=== PATIENT | male | born 1935 | race Caucasian/White ===

== ENCOUNTER 2017-05-31 03:03 | Observation (INO) | payer MEDICARE ==
[2017-05-31] MEDS ORDERED: ASPIRIN 81 MG PO STA (03:17)
[2017-05-31] MEDS ORDERED: NITROGLYCERIN SL TABS 0.4 MG TAB SUBLINGUAL PRN (03:17)
[2017-05-31] MEDS ORDERED: SODIUM CHLORIDE 0.9% 1,000 ML IV STA (03:17)
[2017-05-31] MEDS ORDERED: MORPHINE SULFATE 4 MG/ML SYRINGE IV PRN (03:17)
[2017-05-31] MEDS ORDERED: NITROGLYCERIN SL TABS 0.4 MG TAB SUBLINGUAL STA (03:17)
--- NOTE | 2017-05-31 03:19 | ED ---
General Adult HPI - General Chief complaint: Chest Pain Stated complaint: CHEST PAIN Time Seen by Provider: 05/31/17 03:17 Source: patient, RN notes reviewed, old records reviewed Mode of arrival: wheelchair Limitations: no limitations - History of Present Illness Initial comments: This is an 81-year-old male the ER for chest pain. Patient has a similar episode chest pain or 4 days ago. Patient's complaining chest pain can be severe with shortness of breath. Patient has history of high blood pressure, high cholesterol. Patient did have bouts of chest pain with worsening episodes of chest pain like it severe with shortness of breath. No travel history no sick contacts. Patient did have a cardiac workup about a year ago which had for what he understands a normal stress test. - Related Data Home Medications Medication Instructions Recorded Confirmed Atenolol [Tenormin] 25 mg PO DAILY 08/01/15 05/31/17 Simvastatin [Zocor] 20 mg PO DAILY 08/01/15 05/31/17 Aspirin 81 mg PO DAILY 05/31/17 05/31/17 Allergies Allergy/AdvReac Type Severity Reaction Status Date / Time No Known Allergies Allergy Verified 08/01/15 11:57 Review of Systems ROS Statement: Those systems with pertinent positive or pertinent negative responses have been documented in the HPI. ROS Other: All systems not noted in ROS Statement are negative. Past Medical History Past Medical History: Hyperlipidemia, Hypertension History of Any Multi-Drug Resistant Organisms: None Reported Past Surgical History: No Surgical Hx Reported, Tonsillectomy Past Psychological History: No Psychological Hx Reported Smoking Status: Never smoker Past Alcohol Use History: Rare Past Drug Use History: None Reported General Exam Limitations: no limitations General appearance: alert, in no apparent distress Head exam: Present: atraumatic, normocephalic, normal inspection Eye exam: Present: normal appearance, PERRL, EOMI. Absent: scleral icterus, conjunctival injection, periorbital swelling ENT exam: Present: normal exam, mucous membranes moist Neck exam: Present: normal inspection. Absent: tenderness, meningismus, lymphadenopathy Respiratory exam: Present: normal lung sounds bilaterally. Absent: respiratory distress, wheezes, rales, rhonchi, stridor Cardiovascular Exam: Present: regular rate, normal rhythm, normal heart sounds. Absent: systolic murmur, diastolic murmur, rubs, gallop, clicks GI/Abdominal exam: Present: soft, normal bowel sounds. Absent: distended, tenderness, guarding, rebound, rigid Extremities exam: Present: normal inspection, full ROM, normal capillary refill. Absent: tenderness, pedal edema, joint swelling, calf tenderness Back exam: Present: normal inspection Neurological exam: Present: alert, oriented X3, CN II-XII intact Psychiatric exam: Present: normal affect, normal mood Skin exam: Present: warm, dry, intact, normal color. Absent: rash Course Vital Signs 05/31/17 05/31/17 05/31/17 03:09 03:44 04:13 Temperature 97.6 F Pulse Rate 71 67 Respiratory 18 18 Rate Blood Pressure 116/67 160/80 O2 Sat by Pulse 97 99 Oximetry 05/31/17 05/31/17 05/31/17 04:24 05:02 06:00 Temperature 97.5 F L Pulse Rate 66 57 L 83 Respiratory 18 16 18 Rate Blood Pressure 150/77 157/74 147/70 O2 Sat by Pulse 95 98 97 Oximetry EKG Findings - EKG Comments: EKG Findings:: EKG shows normal sinus rhythm rate of 71, SC 170, QRS 90, QTC 423 Medical Decision Making - Medical Decision Making 81 male to the ER for evaluation of, chest pain history of high cholesterol history of high blood pressure. Facial be admitted for chest pain observation - Lab Data Result diagrams: 05/31/17 03:20 05/31/17 03:20 - Radiology Data Radiology results: report reviewed (Chest x-ray is negative for acute disease), image reviewed Critical Care Time Critical Care Time: Yes Total Critical Care Time: 31 Disposition Clinical Impression: Chest pain Disposition: ADMITTED IP TO THIS [facility] Condition: Undetermined
[2017-05-31 03:40] LABS: Basophils % (A) 0 %; CH 31.5; CHCM 34.7; Eosinophils # (A) 0.1 k/uL (0-0.7); Eosinophils % (A) 1 %; HCT 41.5 % (39.0-53.0); HDW 2.65; HGB 13.8 gm/dL (13.0-17.5); Luc # (Auto) 0.14; Luc % (Auto) 2; Lymphocytes # (A) 1.2 k/uL (1.0-4.8); Lymphocytes % (A) 16 %; MCH 30.2 pg (25.0-35.0); MCHC 33.2 g/dL (31.0-37.0); Mean Platelet Volume 6.8; Monocytes # (A) 0.6 k/uL (0-1.0); Monocytes % (A) 8 %; Neutrophils # (A) 5.2 k/uL (1.3-7.7); Neutrophils % (A) 72 %; RBC 4.56 m/uL (4.30-5.90); WBC 7.2 k/uL (3.8-10.6); WBC (Perox) 7.42
[2017-05-31 03:50] LABS: ALT 28 U/L (21-72); AST 24 U/L (17-59); Alkaline Phosphatase 81 U/L (38-126); Anion Gap 9 mmol/L; Blood Urea Nitrogen 31 mg/dL (9-20); Calcium 10.1 mg/dL (8.4-10.2); Carbon Dioxide 25 mmol/L (22-30); Chloride 107 mmol/L (98-107); Glucose 125 mg/dL (74-99); Magnesium 2.1 mg/dL (1.6-2.3); Non-African American GFR(MDRD) 52 (>60 ml/min/1.73 sqM); Potassium 4.3 mmol/L (3.5-5.1); Sodium 141 mmol/L (137-145); Total Bilirubin 0.4 mg/dL (0.2-1.3); Total Protein 6.6 g/dL (6.3-8.2)
[2017-05-31 04:00] LABS: Creatine Kinase 87 U/L (55-170)
[2017-05-31 04:02] LABS: Prothrombin Time 10.6 sec (9.0-12.0)
[2017-05-31 04:14] LABS: Creatine Kinase MB 2.1 ng/mL (0.0-2.4); Troponin I <0.012 ng/mL (0.000-0.034)
[2017-05-31 04:38] LABS: Partial Thromboplastin Time 21.7 sec (22.0-30.0)
--- NOTE | 2017-05-31 04:41 | XR ---
EXAM: XR Chest, 2 Views CLINICAL HISTORY: Left-sided chest pain TECHNIQUE: Frontal and lateral views of the chest. COMPARISON: No relevant prior studies available. FINDINGS: Lungs: Unremarkable. No consolidation. Pleural space: Unremarkable. No pneumothorax. Heart: Unremarkable. No cardiomegaly. Mediastinum: Unremarkable. Bones/joints: Degenerative changes are seen throughout the osseous structures. IMPRESSION: No radiographic evidence of acute cardiopulmonary process.
[2017-05-31 10:14] LABS: Creatine Kinase 57 U/L (55-170)
[2017-05-31 10:25] LABS: Creatine Kinase MB 1.6 ng/mL (0.0-2.4); Troponin I <0.012 ng/mL (0.000-0.034)
--- NOTE | 2017-05-31 12:46 | P.CRDCN ---
History of Present Illness Consult date: 05/31/17 History of present illness: This is a 81-year-old male. Past medical history significant for essential hypertension and dyslipidemia. Patient presents with complaints of sharp left sided chest pain associated with inspiration and movement. He states he first felt this discomfort on Monday afternoon. He states that it is worse when he is moving his torso or lifting his arms. At rest he does not feel this discomfort. He denies radiation of this pain to his arm, neck or jaw. He does feel mild discomfort to the back with movement as well. He denies associated shortness of breath, nausea, diaphoresis, palpitations or dizziness. He is currently resting comfortably in no acute distress and is chest pain free. EKG done shows sinus mechanism with frequent PVC's which is consistent with previous. Troponins are normal x 2. Chest x-ray showed no acute cardiopulmonary process. Most recent echo dated from 2015 indicates preserved LV function with EF 55% done in the office. Review of Systems Extensive review of systems performed, negative except mentioned in HPI. Past Medical History Past Medical History: Hyperlipidemia, Hypertension, Osteoarthritis (OA) Additional Past Medical History / Comment(s): Arthritis L knee History of Any Multi-Drug Resistant Organisms: None Reported Past Surgical History: Orthopedic Surgery, Tonsillectomy Additional Past Surgical History / Comment(s): Colonoscopy, R hand middle trigger finger repair. Past Anesthesia/Blood Transfusion Reactions: No Reported Reaction, Motion Sickness Smoking Status: Never smoker - Past Family History Father Family Medical History: Myocardial Infarction ([place]) Additional Family Medical History / Comment(s): Pt did not have much contact with his father but know that he of a [place] in his late 60's. Mother Family Medical History: Diabetes Mellitus, Hearing Disorder / Deafness Additional Family Medical History / Comment(s): Pt states he believes his mother may have had some "mini strokes." Medications and Allergies Home Medications Medication Instructions Recorded Confirmed Type Aspirin 81 mg PO DAILY 05/31/17 05/31/17 History Atorvastatin [Lipitor] 20 mg PO DAILY 05/31/17 05/31/17 History Metoprolol Tartrate [Metoprolol 25 mg PO DAILY 05/31/17 05/31/17 History Tartrate] Allergies Allergy/AdvReac Type Severity Reaction Status Date / Time No Known Allergies Allergy Verified 05/31/17 07:23 Physical Exam Vitals: Vital Signs Temp Pulse Resp BP Pulse Ox 05/31/17 09:18 58 L 18 159/73 97 05/31/17 07:23 97.3 F L 57 L 18 173/98 98 05/31/17 06:00 83 18 147/70 97 05/31/17 05:02 97.5 F L 57 L 16 157/74 98 05/31/17 04:24 66 18 150/77 95 05/31/17 04:13 97.6 F 05/31/17 03:44 67 18 160/80 99 05/31/17 03:09 71 18 116/67 97 Intake and Output 05/30/17 05/31/17 05/31/17 22:59 06:59 14:59 Output Total 200 Balance -200 Output: Urine 200 Other: Weight 83.007 kg GENERAL: This is a 81-year-old that male in no apparent distress at the time of my examination. HEENT: Head is atraumatic, normocephalic. Pupils are equal, round. Sclerae anicteric. Conjunctivae are clear. Mucous membranes of the mouth are moist. Neck is supple. There is no jugular venous distention. No carotid bruit is heard. LUNGS: Clear to auscultation no wheezes, rales or rhonchi. No chest wall tenderness is noted on palpation or with deep breathing. HEART: Regular rate and rhythm with systolic ejection murmur at the base, no rubs or gallops. S1 and S2 heard. ABDOMEN: Soft, nontender. Bowel sounds are heard. No organomegaly noted. EXTREMITIES: 2+ peripheral pulses with no evidence of peripheral edema and no calf tenderness noted. NEUROLOGIC: Patient is awake, alert and oriented x3. Results 05/31/17 03:20 05/31/17 03:20 Cardiac Enzymes 05/31/17 05/31/17 05/31/17 Range/Units 03:20 03:20 09:25 AST 24 (17-59) U/L CK-MB (CK-2) 2.1 1.6 (0.0-2.4) ng/mL Troponin I <0.012 <0.012 (0.000-0.034) ng/mL Coagulation 05/31/17 Range/Units 03:20 PT 10.6 (9.0-12.0) sec APTT 21.7 L (22.0-30.0) sec CBC 05/31/17 Range/Units 03:20 WBC 7.2 (3.8-10.6) k/uL RBC 4.56 (4.30-5.90) m/uL Hgb 13.8 (13.0-17.5) gm/dL Hct 41.5 (39.0-53.0) % Plt Count 244 (150-450) k/uL Comprehensive Metabolic Panel 05/31/17 Range/Units 03:20 Sodium 141 (137-145) mmol/L Potassium 4.3 (3.5-5.1) mmol/L Chloride 107 (98-107) mmol/L Carbon Dioxide 25 (22-30) mmol/L BUN 31 H (9-20) mg/dL Creatinine 1.32 H (0.66-1.25) mg/dL Glucose 125 H (74-99) mg/dL Calcium 10.1 (8.4-10.2) mg/dL AST 24 (17-59) U/L ALT 28 (21-72) U/L Alkaline Phosphatase 81 (38-126) U/L Total Protein 6.6 (6.3-8.2) g/dL Albumin 4.0 (3.5-5.0) g/dL Current Medications Generic Name Dose Route Start Last Admin Trade Name Freq PRN Reason Stop Dose Admin Aspirin 325 mg 06/01/17 09:00 Aspirin PO DAILY DEBO Sodium Chloride 1,000 mls @ 100 mls/hr 05/31/17 03:17 05/31/17 03:42 Saline 0.9% IV 05/31/17 13:16 100 mls/hr .Q10H STA Administration Morphine Sulfate 4 mg 05/31/17 03:17 Morphine Sulfate (Inj) IV Q5M PRN Chest Pain Nitroglycerin 0.4 mg 05/31/17 03:17 Nitrostat SUBLINGUAL Q5M PRN Chest Pain Intake and Output 05/30/17 05/31/17 05/31/17 22:59 06:59 14:59 Output Total 200 Balance -200 Output: Urine 200 Other: Weight 83.007 kg 05/31/17 03:20 05/31/17 03:20 Assessment and Plan Plan: ASSESSMENT 1. Chest pain most likely musculoskeletal 2. Essential hypertension 3. History of frequent PVCs PLAN Hold presentation of this patient is strongly suggestive of musculoskeletal pain we will proceed with a stress echocardiogram to assess for any acute coronary event. If this is normal the patient is stable for discharge home to follow up with Dr. SARTHAK Simental. He states he artery has an appointment scheduled for earlier in June that is sufficient. Thank you kindly for this consultation. Nurse Practitioner note has been reviewed, I agree with a documented findings and plan of care. Patient was seen and examined.
[2017-05-31 13:36] VITALS: RESP 18
--- NOTE | 2017-05-31 15:32 | NM ---
EXAMINATION TYPE: NM pul vent and perfuse DATE OF EXAM: 05/31/2017 COMPARISON: Chest x-ray from earlier today HISTORY: Elevated d-dimer with chest pain. TECHNIQUE: Utilizing inhalation of 66.5 mCi Tc 99m DTPA aerosol and intravenous injection of 5.06 mC i of Tc 99m MAA, ventilation and perfusion images are acquired post injection in multiple projections . FINDINGS: Normal radiotracer distribution is noted in the lungs. There is no evidence of mismatched defects. IMPRESSION: No scintigraphic evidence for pulmonary embolism.
[2017-05-31 15:58] VITALS: BP 142/76; PULSE 78; TEMP 97.9
[2017-05-31 16:52] LABS: Creatine Kinase 52 U/L (55-170)
--- NOTE | 2017-05-31 16:54 | P.DS ---
Providers Date of admission: 05/31/17 03:17 Expected date of discharge: 05/31/17 Attending physician: Barbara Márquez DO Consults: 05/31/17 03:17 Consult Physician Urgent Consulting Provider: Tanya Mckenzie Consult Reason/Comments: cp Do you want consulting provider notified?: Yes Primary care physician: Pdero Murray - Discharge Diagnosis(es) (1) Chest pain Current Visit: Yes Status: Acute (2) Hypertension Current Visit: Yes Status: Acute (3) Hyperlipidemia Current Visit: Yes Status: Acute Hospital Course: This is a 81-year-old male that was presented to the ER with symptoms of chest pain. Patient describes the chest pain as being sharp in nature on the left side. Some breath no palpitations no fever. Also presents with headache. Patient denies any nausea with this. Patient had a workup here which showed mildly elevated d-dimer for which a VQ scan was done. And this was negative patient had stress test done by cardiology which is at this point is unofficial report and I am told is negative. Cardiology has notified nurse that patient can be discharged home at this time. Of note I was not notified of this patient's admission until 4:00 today Procedures: VQ scan showing low risk of PE Stress test which is presumptive negative as per cardiology Patient Condition at Discharge: Undetermined Plan - Discharge Summary New Discharge Prescriptions: Continue Aspirin 81 mg PO DAILY Metoprolol Tartrate 25 mg PO DAILY Atorvastatin [Lipitor] 20 mg PO DAILY Discharge Medication List Aspirin 81 mg PO DAILY 05/31/17 [History] Atorvastatin [Lipitor] 20 mg PO DAILY 05/31/17 [History] Metoprolol Tartrate 25 mg PO DAILY 05/31/17 [History] Follow up Appointment(s)/Referral(s): Pedro Murray MD [Primary Care Provider] - 1-2 days Patient Instructions/Handouts: Chest Pain (ED) Discharge Disposition: HOME SELF-CARE
--- NOTE | 2017-05-31 16:56 | P.HPIM ---
History of Present Illness H&P Date: 05/31/17 Chief Complaint: chest pain This is a 81-year-old male that comes in with symptoms of chest pain. Patient was seen yesterday at home with home symptoms started on the left side of the chest. Chest pain is described as sharp. No exacerbating factors. No shortness of breath or nausea he denies any previous cardiac history Review of Systems No fever no chills no cough no palpitations no lower extremity edema no nausea no abdominal pain Past Medical History Past Medical History: Hyperlipidemia, Hypertension, Osteoarthritis (OA) Additional Past Medical History / Comment(s): Arthritis L knee History of Any Multi-Drug Resistant Organisms: None Reported Past Surgical History: Orthopedic Surgery, Tonsillectomy Additional Past Surgical History / Comment(s): Colonoscopy, R hand middle trigger finger repair. Past Anesthesia/Blood Transfusion Reactions: No Reported Reaction, Motion Sickness Smoking Status: Never smoker - Past Family History Father Family Medical History: Myocardial Infarction ([place]) Additional Family Medical History / Comment(s): Pt did not have much contact with his father but know that he of a [place] in his late 60's. Mother Family Medical History: Diabetes Mellitus, Hearing Disorder / Deafness Additional Family Medical History / Comment(s): Pt states he believes his mother may have had some "mini strokes." Medications and Allergies Home Medications Medication Instructions Recorded Confirmed Type Aspirin 81 mg PO DAILY 05/31/17 05/31/17 History Atorvastatin [Lipitor] 20 mg PO DAILY 05/31/17 05/31/17 History Metoprolol Tartrate 25 mg PO DAILY 05/31/17 05/31/17 History Allergies Allergy/AdvReac Type Severity Reaction Status Date / Time No Known Allergies Allergy Verified 05/31/17 07:23 Physical Exam Vitals: Vital Signs Temp Pulse Pulse Resp BP BP Pulse Ox 05/31/17 16:00 78 18 05/31/17 15:56 97.9 F 78 18 142/76 95 05/31/17 13:46 74 18 05/31/17 13:34 97.7 F 74 18 94/61 100 05/31/17 12:26 97.4 F L 72 16 179/98 99 05/31/17 09:18 58 L 18 159/73 97 05/31/17 07:23 97.3 F L 57 L 18 173/98 98 05/31/17 06:00 83 18 147/70 97 05/31/17 05:02 97.5 F L 57 L 16 157/74 98 05/31/17 04:24 66 18 150/77 95 05/31/17 04:13 97.6 F 05/31/17 03:44 67 18 160/80 99 05/31/17 03:09 71 18 116/67 97 Intake and Output 05/31/17 05/31/17 05/31/17 06:59 14:59 22:59 Intake Total 240 Output Total 200 Balance -200 240 Intake: Oral 240 Output: Urine 200 Other: Voiding Method Toilet Toilet Weight 83.007 kg 76.2 kg Patient Weight 06/01/17 06:59 Weight 76.2 kg - EENT Eyes: PERRLA ENT: normal oropharynx - Respiratory Respiratory: bilateral: CTA - Cardiovascular Rhythm: regular Heart sounds: normal: S1, S2 - Gastrointestinal General gastrointestinal: soft (and deprssible) - Integumentary Integumentary: no rash - Neurologic Neurologic: CNII-XII intact - Musculoskeletal Musculoskeletal: strength equal bilaterally - Psychiatric Psychiatric: A&O x's 3, intact judgment & insight Results CBC & Chem 7: 05/31/17 03:20 05/31/17 03:20 Labs: Abnormal Lab Results - Last 24 Hours (Table) 05/31/17 05/31/17 05/31/17 Range/Units 03:20 03:20 12:26 APTT 21.7 L (22.0-30.0) sec D-Dimer 1.45 H (<0.60) mg/L FEU BUN 31 H (9-20) mg/dL Creatinine 1.32 H (0.66-1.25) mg/dL Glucose 125 H (74-99) mg/dL Thrombosis Risk Factor Assmnt - Choose All That Apply Any of the Below Risk Factors Present?: Yes Each Factor Represents 1 point: Obesity (BMI >25) Other Risk Factors: Yes Each Risk Factor Represents 3 Points: Age 75 years or older Other congenital or acquired thrombophilia - If yes, enter type in comment: No Thrombosis Risk Factor Assessment Total Risk Factor Score: 4 Thrombosis Risk Factor Assessment Level: Moderate Risk Assessment and Plan (1) Chest pain Narrative/Plan: Stress test is presumptively negative troponins have been negative is going to come to evaluate patient. VQ scan also negative Status: Acute (2) Hypertension Narrative/Plan: controlled continue current regimen Status: Acute (3) Hyperlipidemia Narrative/Plan: Continue Lipitor Status: Acute Plan: Patient was admitted with chest pains or cardiac enzymes were done which were negative. Patient also had VQ scan which was negative and had stress test which was negative. Cardiology has notified RN the patient is okay to be discharged Of note I was notified of this patient's discharge admission at 4:00 PM.
[2017-05-31 17:02] LABS: Creatine Kinase MB 1.4 ng/mL (0.0-2.4); Troponin I <0.012 ng/mL (0.000-0.034)
--- NOTE | 2017-05-31 17:04 | P.HPADDEND ---
H&P Addendum H&P Addendum Date: 05/31/17 Advanced directive note CODE STATUS discussed with patient and patient Y is POA
--- NOTE | 2017-06-01 05:50 | EST ---
EXERCISE STRESS DATE OF SERVICE: 05/31/2017 AGE: 81 SEX: Male HT: 69 WT: 183 PROTOCOL: Marcos STAGE: II DURATION OF EXERCISE: 4 minutes HEART RATE REST: 83 BLOOD PRESSURE REST: 157/87 MAXIMUM HEART RATE ACHIEVED: 134 MAXIMUM BLOOD PRESSURE: 181/56 85% MPHR: 118 100% MPHR: 139 METS: 5.8 INDICATIONS: Chest pain. CLINICAL INFORMATION: The patient admitted with chest discomfort and PVCs. Baseline heart rate 83 beats per minute. Baseline blood pressure 157/87 mmHg. Baseline 12-lead ECG shows sinus rhythm, with left-sided PVCs nonspecific ST-T abnormalities. Patient exercised on a Marcos protocol for 4 minutes achieving a peak heart rate of 134 beats per minute. Initially there was an increase in PVCs with exercise but at peak exercise, there was suppression of PVCs. Intermittent PVCs returned in recovery. There was no evidence for ischemia. No exercise-induced nonsustained ventricular tachycardia noted. IMPRESSION: Low average exercise capacity. PVCs suppressed at peak exercise. No nonsustained ventricular tachycardia. No evidence of ischemia. MMODL / IJN: [id number] /
[2017-06-01] MEDS ORDERED: ASPIRIN 325 MG TAB PO SCH (09:00)
== END 2017-05-31 18:03 | disposition home or self-care (01) ==
LOC: EC 03:03 → 3OBS 03:17
PROVIDERS: ADMIT Internal Medicine; ATTEND Internal Medicine
DX: R07.89 Other chest pain (principal); I10 Essential (primary) hypertension; E78.5 Hyperlipidemia, unspecified; I49.3 Ventricular premature depolarization; R06.02 Shortness of breath; R51 Headache; R79.89 Other specified abnormal findings of blood chemistry; M17.12 Unilateral primary osteoarthritis, left knee; Z68.25 Body mass index [BMI] 25.0-25.9, adult; E66.9 Obesity, unspecified; Z79.82 Long term (current) use of aspirin; Z79.899 Other long term (current) drug therapy; Z82.49 Family history of ischemic heart disease and other diseases of the circulatory system
CPT/HCPCS: 36415; 71020; 78582; 80053; 82550; 82553; 83690; 83735; 84484; 85025; 85379; 85610; 85730; 93005; 93017; 93350; 99291

== ENCOUNTER 2017-11-14 07:25 | Day surgery (SDC) | payer MEDICARE ==
[2017-11-10 11:09] VITALS: BMI 25.5
[2017-11-14 08:05] VITALS: RESP 16; TEMP 98.1
[2017-11-14] MEDS: PHENYLEPHRINE 10% OPHTH DROPS 5 ML BTL OP ONE ×5 (08:07→08:33)
[2017-11-14] MEDS: CYCLOPENTOLATE 1% OPHTH SOLN 2 ML BTL OP ONE ×5 (08:10→08:36)
[2017-11-14] MEDS: FLURBIPROFEN 0.03% OPHTH DROPS 2.5 ML BTL OP ONE ×5 (08:13→08:39)
[2017-11-14] MEDS: LACTATED RINGERS 1,000 ML IV SCH ×2 (08:19→08:45)
[2017-11-14] MEDS ORDERED: PROPOFOL 10 MG/ML 20 ML VIAL IV ONE (08:46)
[2017-11-14] MEDS ORDERED: EPINEPHrine (PF) 0.5 ML in BALANCED SALT IRRIG SOLN COMB2 500 ML IRRIGATION ONE (08:49)
[2017-11-14] MEDS ORDERED: BALANCED SALT IRRIG SOLN COMB2 15 ML IRRIG.SOLN IRRIGATION ONE (08:52)
[2017-11-14] MEDS ORDERED: HYALURONATE SODIUM INTRAOCULAR 1 EACH SYRINGE (10MG/ML) INTRAOCULA ONE (08:53)
--- NOTE | 2017-11-14 09:11 | P.OP ---
Date of Procedure: 11/14/17 Procedure(s) Performed: PREOPERATIVE DIAGNOSIS: Cataract, right eye. POSTOPERATIVE DIAGNOSIS: Cataract, right eye. OPERATION: Phacoemulsification cataract, right eye. DESCRIPTION OF PROCEDURE: The patient was taken to the preoperative holding area. Intravenous Propofol was given so as to bring about adequate sedation. The following mixture was given for local anesthesia: 5 mL of 2% lidocaine, 5 mL of 0.75% Marcaine, and 1 mL of Wydase. Approximately 4 mL was injected in the retrobulbar space of the surgical eye. Additional 1 mL was then directed to the temporal area of the surgical eye. This was performed to allow adequate neurological block of the facial muscles. The patient was revived and then taken into the operative room. The patient was prepped and draped in the usual sterile manner for the operative eye. A lid speculum was put into position. The conjunctiva was resected back from the limbus in the 12 o'clock position. Bleeding was controlled with electrocautery. A #69 blade was then used and a half-thickness scleral incision approximately 1-mm posterior to the limbus was made on bare sclera. This was shelved in the clear cornea using a crescent knife. Next a 15-degree blade was used to make a stab incision at the 3 o' clock position at the corneolimbal interface. Keratome blade was then used and the superior wound was extended into the anterior chamber. Viscoelastic was injected into the anterior chamber and to maintain its form. Next, a cystotome was used and a continuous anterior capsulotomy was made without difficulty. Hydrodissection using a blunt cannula and BSS was performed. Phaco probe was then employed and a groove extending from 12 to 6 o'clock in the lens was created. A [place] wand was used through the stab incision so as to perform a divide and conquer technique. Next an irrigation aspiration probe was utilized and any residual cortex was removed from the eye. Again, viscoelastic was injected into the anterior chamber. An Arcadio posterior chamber lens implant was placed in the cartridge and injected into the anterior chamber without difficulty. The Zume Lifeey hook was utilized to spin the lens into position and this was again performed without any difficulty. The irrigation and aspiration probe was again employed and any residual viscoelastic was removed from the eye. Then BSS was injected into the limbal stab incision and the anterior chamber re-inflated. The conjunctiva was reapproximated using electrocautery. One drop of 0.25% Timoptic was placed over the corneal along with TobraDex ophthalmic ointment. Two sterile patches and a Puente eye shield were taped into position. The patient was transported to the recovery room in stable condition. Pathology: none sent Condition: stable Disposition: same day
[2017-11-14 09:38] VITALS: BP 153/80; PULSE 56
[2017-11-14] MEDS ORDERED: TIMOLOL 0.5% OPHTH DROPS 5 ML BTL OP ONE (23:00)
[2017-11-14] MEDS ORDERED: BUPIVACAINE (PF) 0.75% 5 ML, HYALURONIDASE, HUMAN RECOMB 150 UNIT, LIDOCAINE 2% (PF) 10... MISCELLANE ONE ×3 (23:00)
[2017-11-14] MEDS ORDERED: GENTAMICIN/PREDNISOL AC OPHTH OINT 3.5GM OPHTHALMIC ONE (23:00)
== END 2017-11-14 10:03 | disposition home or self-care (01) ==
LOC: OR 07:25
PROVIDERS: ATTEND Ophthalmology
DX: H26.9 Unspecified cataract (principal); H57.03 Miosis; H40.051 Ocular hypertension, right eye; I10 Essential (primary) hypertension; I49.9 Cardiac arrhythmia, unspecified; E78.5 Hyperlipidemia, unspecified; Z79.82 Long term (current) use of aspirin; Z79.899 Other long term (current) drug therapy
CPT/HCPCS: 66984; V2632; J3470; J2001; J0171; J2704